=== PATIENT | female | born 1975 | race Caucasian/White ===

== ENCOUNTER 2017-09-14 14:59 | Emergency (ER) | payer OTHER ==
[2017-09-14 15:38] VITALS: BP 96/59
--- NOTE | 2017-09-14 16:39 | UC ---
Skin Complaint HPI - HPI Summary HPI Summary: 42 yo female with red raised areas on right ring finger x 3-4 days This has happened 3 times in the past and has always responded to doxy long hx Raynaulds - History of Current Complaint Chief Complaint: UCSkin Time Seen by Provider: 09/14/17 15:46 Stated Complaint: HAND INFECTION Hx Obtained From: Patient Hx Last Menstrual Period: 08/16/17 Onset/Duration: Sudden Onset, Lasting Days Timing: Constant Onset Severity: Mild Current Severity: Mild Pain Intensity: 1 Pain Scale Used: 0-10 Numeric Location: Discrete Character: Swelling, Redness, Raised, Painful - very mild Aggravating Factor(s): Nothing Alleviating Factor(s): Nothing - Allergy/Home Medications Allergies/Adverse Reactions: Allergies Allergy/AdvReac Type Severity Reaction Status Date / Time No Known Allergies Allergy Verified 09/14/17 15:39 Review of Systems Constitutional: Negative Skin: Negative Eyes: Negative ENT: Negative Respiratory: Negative Cardiovascular: Negative Gastrointestinal: Negative Genitourinary: Negative Motor: Negative Neurovascular: Negative Musculoskeletal: Negative Neurological: Negative Psychological: Negative Is Patient Immunocompromised?: No All Other Systems Reviewed And Are Negative: Yes PMH/Surg Hx/FS Hx/Imm Hx Previously Healthy: Yes - Surgical History Surgical History: None Surgery Procedure, Year, and Place: Amo teeth - Family History Known Family History: Positive: Other - autoimmune "stuff" - Social History Alcohol Use: None Substance Use Type: None Smoking Status (MU): Never Smoked Tobacco Physical Exam Triage Information Reviewed: Yes Appearance: Well-Appearing, No Pain Distress, Well-Nourished Vital Signs: Initial Vital Signs Temp 98.8 F 09/14/17 15:31 Pulse 85 09/14/17 15:31 Resp 12 09/14/17 15:31 BP 96/59 09/14/17 15:31 Pulse Ox 100 09/14/17 15:31 Vital Signs Reviewed: Yes Eyes: Positive: Conjunctiva Clear ENT: Positive: Hearing grossly normal. Negative: Nasal congestion, Nasal drainage, Trismus, Muffled voice, Hoarse voice Neck: Positive: Supple, Nontender Respiratory: Positive: Lungs clear, Normal breath sounds, No respiratory distress Cardiovascular: Positive: RRR, No Murmur Musculoskeletal: Positive: ROM Intact, Other: - see image Psychological Exam: Normal Skin Exam: Other - see image Course/Dx - Course Course Of Treatment: I suggested Rheum fernandal to r/o autoimmune cause of her symptoms - Diagnoses Provider Diagnoses: right index finger lesions of uncertain cause Discharge - Discharge Plan Condition: Stable Disposition: HOME Prescriptions: DOXYcycline CAP(*) [DOXYcycline 100MG CAP(*)] 100 mg PO BID #20 cap Mupirocin 2% OINT* [Bactroban 2 % Oint*] 1 applic TOPICAL TID #1 tube Patient Education Materials: Raynaud Disease (ED) Referrals: Christiano Garcia MD [Medical Doctor] - 2 Weeks Additional Instructions: I am unsure of the cause of your recurrent right ring finger redness and swelling Since it has responded to doxy in the past we will try that again May sure you are not before starting it use bactroban I suggest you see a director religious education about you hand symptoms Images Hands: 1 - mild fusiform swelling/erythema 2 - red/raised/not vesicular 3 - red raised 4 - red/raised/not vesicular
== END 2017-09-14 16:39 | disposition home or self-care (01) ==
LOC: UCEAST 14:59
DX: L98.9 Disorder of the skin and subcutaneous tissue, unspecified (principal); I73.00 Raynaud's syndrome without gangrene
CPT/HCPCS: 99212; G0463

== ENCOUNTER 2018-05-31 03:35 | Inpatient (IN) | payer OTHER ==
[2018-05-31] MEDS ORDERED: Misoprostol TAB* 100 MCG PO ONE ×2 (08:48→15:00)
--- NOTE | 2018-05-31 09:02 | HP ---
General Information - General Information Maternal Age: 43 Grav: 1 Para: 0 SAB: 0 IEA: 0 Estimated Due Date: 05/24/18 Determined By: LMP Gestational Age in Weeks/Days: 41 0/7 weeks Maternal Blood Type and Rh: O Positive - Results this Serology/RPR Result: Non-Reactive Rubella Result: Immune HBsAg Result: Negative HIV Result: Negative GBS Culture Result: Negative Past Medical History Delivery History: See Records Pertinent Past Medical History: See Records Pertinent Past Surgical History: See Records Pertinent Family History: See Records - Antepartal Records Antepartal Records: Reviewed, Complicated by: - AMA hypothyroidism Review of Systems Constitutional: Comfortable CV Complaint: No Respiratory: Shortness of Breath: No Gastrointestinal: No Nausea/Vomiting Genitourinary: Leaking Fluid, No Dysuria Musculoskeletal: No Complaint Neurological: No Headache, No Visual Changes Movement: Normal Exam Allergies/Adverse Reactions: Allergies No Known Allergies Allergy (Verified 09/14/17 15:39) Lab Values - Entire Visit: Laboratory Tests 05/31/18 05:47 Vag Amniotic Fld Detect Positive - Measurements Height: 5 ft 4 in Weight: 149 lb Weight in lbs: 149.372161 Body Mass Index (BMI): 25.5 Pre- Weight: 125 lb Weight Gained This : 24 lbs and 0 ozs - Abdominal Exam Abdomen Exam: Non-Tender - Ultrasound/Biophysical Profile Ultrasound Status: Not Done Targeted Exam Findings See L&D Outpatient Visit Provider Note for Findings: Yes Cervical Exam: 1cm Effacement: 70% Presenting Part: Vertex Membrane Status: SROM Amniotic Fluid Evaluation: Positive ROM Plus EFM Findings - External Monitor Findings Baseline Heart Rate: 140 External Monitor Findings: Accelerations Present, No Pattern of Variable or Late Decelerations, Variability Moderate, Baseline Stable Contractions: None Assessment/Plan - Assessment Spontaneous rupture of membranes/ cervical ripening to begin after discussion of options. Pt decides upon oral cytotec. - Obstetrical Risk Factors Obstetrical Risk Factors: Post-Dates - Plan Plan: Cervical Ripening, Admit - Anticipate Vaginal Delivery
[2018-05-31 09:55] LABS: ABS Basophils 0 10^3/ul (0-0.2); ABS Eosinophils 0.1 10^3/ul (0-0.6); ABS Lymphocytes 1.1 10^3/ul (1.0-4.8); ABS Monocytes 0.6 10^3/ul (0-0.8); ABS Neutrophils 5.8 10^3/ul (1.5-7.7); ABS Nucleated RBC 0 10^3/ul; Hematocrit 36 % (35-47); Hemoglobin 11.8 g/dl (12.0-16.0); Lymphocyte % 14.4 % (25-47); Mean Corpuscular HGB Conc 33 g/dl (31-36); Mean Corpuscular Hemoglobin 30 pg (27-31); Mean Corpuscular Volume 89 fL (80-97); Mean Platelet Volume 10.9 um3 (7.4-10.4); Nucleated Red Blood Cells % 0.1; Platelet Count 95 10^3/ul (150-450); Red Blood Count 3.98 10^6/ul (4.00-5.40); Red Cell Distribution Width 13 % (10.5-15); White Blood Count 7.6 10^3/ul (3.5-10.8)
[2018-05-31] MEDS: Acetaminophen TAB* 325 MG PO PRN ×2 (11:01→19:20)
[2018-05-31 15:56] LABS: ABS Basophils 0 10^3/ul (0-0.2); ABS Eosinophils 0.1 10^3/ul (0-0.6); ABS Monocytes 0.4 10^3/ul (0-0.8); ABS Nucleated RBC 0 10^3/ul; Eosinophil % 0.7 % (0-6); Hematocrit 38 % (35-47); Hemoglobin 12.5 g/dl (12.0-16.0); Lymphocyte % 11.3 % (25-47); Mean Corpuscular HGB Conc 33 g/dl (31-36); Mean Corpuscular Hemoglobin 30 pg (27-31); Mean Corpuscular Volume 89 fL (80-97); Nucleated Red Blood Cells % 0; Platelet Count 103 10^3/ul (150-450); Red Blood Count 4.23 10^6/ul (4.00-5.40); Red Cell Distribution Width 13 % (10.5-15); White Blood Count 8.5 10^3/ul (3.5-10.8)
[2018-05-31] MEDS ORDERED: Oxytocin in LR* 20 UNITS/1,000 ML BAG IVPB ONE (18:27)
[2018-05-31] MEDS ORDERED: Oxytocin in LR* 20 UNITS/1,000 ML BAG IVPB SCH (19:00)
[2018-05-31] MEDS ORDERED: OBEPIDURAL* 250 ML EPIDURAL ONE (21:39)
[2018-05-31] MEDS ORDERED: Famotidine TAB* 20 MG PO PRN (22:35)
[2018-05-31] MEDS ORDERED: Famotidine IV* 10 MG/ML 2 ML (20 mg) IV PRN (22:35)
[2018-05-31] MEDS ORDERED: Sodium Citrate/Citric Acid* 15 ML UDC PO PRN (22:35)
[2018-05-31] MEDS ORDERED: Phenylephrine IV* 40 MCG/ML 10 ML SYRINGE IV PUSH PRN ×2 (22:35)
[2018-05-31] MEDS ORDERED: OBEPIDURAL* 250 ML EPIDURAL SCH (23:00)
[2018-06-01] MEDS ORDERED: Glycerin ADULT SUPP PR PRN (02:13)
[2018-06-01] MEDS ORDERED: Dibucaine 1% 28.35 GM TUBE PR PRN (02:13)
[2018-06-01] MEDS ORDERED: Acetaminophen TAB* 325 MG PO PRN (02:13)
[2018-06-01] MEDS ORDERED: Witch Hazel PAD* JAR TOPICAL PRN (02:13)
--- NOTE | 2018-06-01 02:19 | PROCNOTE ---
[facility] OB: Delivery Note - Nursery Level of Nursery: Regular/Bedside - Perineum Perineal Injury: Abrasion Only - Not Repaired, Right Mediolateral Perineal Repair: None - Events Delivery Events of Note: Pitocin During Labor - Additional Delivery Notes Additional Delivery Notes: / female/ wgt pending/ Apgars 9 @1 min 9@ 5 min. nuchal left arm.no meconium no nuchal cord placenta 3VC/spontaneous/intact
[2018-06-01] MEDS ORDERED: Oxytocin in LR* 20 UNITS/1,000 ML BAG IVPB SCH (03:00)
[2018-06-01] MEDS ORDERED: Simethicone TAB* 80 MG TAB.CHEW PO SCH (08:30)
[2018-06-01] MEDS: Ibuprofen TAB* 600 MG PO PRN ×2 (09:21→19:37)
[2018-06-01] MEDS: Docusate CAP* 100 MG PO SCH ×2 (09:23→15:45)
[2018-06-01] MEDS: Levothyroxine TAB* 50 MCG TAB PO SCH (09:39)
[2018-06-02] MEDS: Docusate CAP* 100 MG PO SCH ×4 (00:40→21:06)
[2018-06-02] MEDS: Ibuprofen TAB* 600 MG PO PRN ×3 (04:20→22:16)
[2018-06-02 07:15] LABS: Hematocrit 28 % (35-47); Hemoglobin 9.4 g/dl (12.0-16.0); Mean Corpuscular HGB Conc 34 g/dl (31-36); Mean Corpuscular Hemoglobin 30 pg (27-31); Mean Corpuscular Volume 89 fL (80-97); Red Blood Count 3.15 10^6/ul (4.00-5.40); Red Cell Distribution Width 13 % (10.5-15); White Blood Count 8.8 10^3/ul (3.5-10.8)
[2018-06-02 08:25] LABS: ABS Basophils 0 10^3/ul (0-0.2); ABS Eosinophils 0.1 10^3/ul (0-0.6); ABS Lymphocytes 1.4 10^3/ul (1.0-4.8); ABS Monocytes 0.5 10^3/ul (0-0.8); ABS Neutrophils 6.7 10^3/ul (1.5-7.7); ABS Nucleated RBC 0 10^3/ul; Eosinophil % 1.5 % (0-6); Lymphocyte % 15.7 % (25-47); Mean Platelet Volume 11.2 um3 (7.4-10.4); Nucleated Red Blood Cells % 0.1; Platelet Count 75 10^3/ul (150-450)
[2018-06-02] MEDS: Ferrous Gluconate TAB* 324 MG TAB PO SCH ×2 (09:15→22:16)
[2018-06-02] MEDS: Levothyroxine TAB* 50 MCG TAB PO SCH (19:20)
[2018-06-03] MEDS: Levothyroxine TAB* 50 MCG TAB PO SCH (07:25)
[2018-06-03] MEDS: Ibuprofen TAB* 600 MG PO PRN (07:41)
[2018-06-03] MEDS: Ferrous Gluconate TAB* 324 MG TAB PO SCH (07:42)
[2018-06-03 08:20] LABS: Hematocrit 31 % (35-47); Hemoglobin 10.3 g/dl (12.0-16.0); Mean Corpuscular HGB Conc 33 g/dl (31-36); Mean Corpuscular Hemoglobin 30 pg (27-31); Mean Corpuscular Volume 90 fL (80-97); Red Blood Count 3.48 10^6/ul (4.00-5.40); Red Cell Distribution Width 13 % (10.5-15); White Blood Count 7.7 10^3/ul (3.5-10.8)
[2018-06-03 08:23] LABS: ABS Basophils 0 10^3/ul (0-0.2); ABS Eosinophils 0.1 10^3/ul (0-0.6); ABS Lymphocytes 1.1 10^3/ul (1.0-4.8); ABS Monocytes 0.5 10^3/ul (0-0.8); ABS Neutrophils 5.9 10^3/ul (1.5-7.7); ABS Nucleated RBC 0 10^3/ul; Eosinophil % 1.9 % (0-6); Nucleated Red Blood Cells % 0.1; Platelet Count 99 10^3/ul (150-450)
[2018-06-03 08:45] VITALS: BP 106/63
== END 2018-06-03 15:19 | disposition home or self-care (01) | DRG 775 ==
LOC: MCHOBOUT 03:35 → MCHOB 08:03
PROVIDERS: ADMIT Obstetrics & Gynecology; ATTEND Obstetrics & Gynecology
PROC: 10E0XZZ Delivery of Products of Conception, External Approach (ICD-10-PCS; principal; 2018-06-01)
PROC: 3E033VJ Introduction of Other Hormone into Peripheral Vein, Percutaneous Approach (ICD-10-PCS; 2018-06-01)
DX: O48.0 Post-term pregnancy (principal); O99.284 Endocrine, nutritional and metabolic diseases complicating childbirth; E03.9 Hypothyroidism, unspecified; O99.344 Other mental disorders complicating childbirth; F41.8 Other specified anxiety disorders; O90.81 Anemia of the puerperium; D64.9 Anemia, unspecified; Z3A.41 41 weeks gestation of pregnancy; Z37.0 Single live birth
CPT/HCPCS: 36415; 84112; 85025; 85060; 86850; 86900; 86901; A9270-GY; S0191

== ENCOUNTER 2019-02-21 20:25 | Emergency (ER) | payer OTHER ==
[2019-02-21 20:32] VITALS: BP 105/64
--- NOTE | 2019-02-21 20:47 | UC ---
UC General HPI - HPI Summary HPI Summary: Patient is a 43 year old woman, who present today to the urgent care with diarrhea for past 1 week f. she reports that she had large bowel movements on Friday and Friday and after that she is being having small 1-2 bowel movements daily. Last bowel movement today was an afternoon and now she feels that she is not able to completely evacuate. She does have associated nausea but is able to tolerate by mouth well and has not had any episode of vomiting. She denies any blood or mucus in stool . she was seen a week before at her primary care doctor's office and was diagnosed with anal fissure and at that time she was having some bleeding which has completely resolved now. there is mild lower abdominal cramping. she recalls that she ate raw eggs which was the only different thing from her and her is completely asymptomatic she denies any antibiotic use in the past 3 months, no vaginal or urinary symptoms reported. Her mom does have a history of ulcerative colitis but she has not been tested for it. - History of Current Complaint Chief Complaint: UCGI Stated Complaint: NAUSEOUS Time Seen by Provider: 02/21/19 20:33 Hx Obtained From: Patient Hx Last Menstrual Period: 08/06/17 Pain Intensity: 0 - Allergy/Home Medications Allergies/Adverse Reactions: Allergies Allergy/AdvReac Type Severity Reaction Status Date / Time No Known Allergies Allergy Verified 02/21/19 20:32 PMH/Surg Hx/FS Hx/Imm Hx - Additional Past Medical History Additional PMH: Past Medical History : hypothyroidism, on levothyroxine Past Surgical History: wisdom tooth Family History : mother with history of ulcerative colitis Social History : no alcohol use, non smoker, no drug use. she is a professor at [employer] Previously Healthy: Yes - Surgical History Surgical History: None Surgery Procedure, Year, and Place: Bl[place] teeth - Family History Known Family History: Positive: Other - autoimmune "stuff" - Social History Alcohol Use: None Substance Use Type: None Smoking Status (MU): Never Smoked Tobacco Have You Smoked in the Last Year: No - Immunization History Most Recent Influenza Vaccination: n/a Most Recent Pneumonia Vaccination: n/a Review of Systems All Other Systems Reviewed And Are Negative: Yes Constitutional: Positive: Negative Skin: Positive: Negative Eyes: Positive: Negative ENT: Positive: Negative Respiratory: Positive: Negative Cardiovascular: Positive: Negative Gastrointestinal: Positive: Abdominal Pain, Diarrhea, Nausea Genitourinary: Positive: Negative Motor: Positive: Negative Neurovascular: Positive: Negative Musculoskeletal: Positive: Negative Neurological: Positive: Negative Psychological: Positive: Negative Is Patient Immunocompromised?: No Physical Exam - Summary Physical Exam Summary: Physical Exam: Const: Appears well. No signs of apparent distress present. Alert and oriented x 3. Musculo: Walks with a normal gait. Head/Face: Atraumatic, normocephalic on inspection. Eyes: EOMI and PERRLA in both eyes. Conjunctivae clear. No discharge noted ENT: Hearing jennifer Respiratory: Respirations are unlabored. Lungs clear to auscultation bilaterally, no wheezing , rhonchi or rales noted . CVS: Regular rate and Rhythm, S1S2 normal , no murmurs identified. Extremities: Peripheral circulation is grossly normal. Pulses 2+ Abdomen : Soft non tender , nondistended , Bowel sounds present . No guarding , rebound tenderness or rigidity noted. Skin: No lesions or rash located on the upper extremities or on the lower extremities. Neuro: Cranial nerves II to XII intact, motor and sensory intact. DTR Intact bilaterally. Mood is normal. Affect is normal. Triage Information Reviewed: Yes Vital Signs: Initial Vital Signs Temp 98.8 F 02/21/19 20:27 Pulse 74 02/21/19 20:27 Resp 16 02/21/19 20:27 BP 105/64 02/21/19 20:27 Pulse Ox 100 02/21/19 20:27 Vital Signs Reviewed: Yes Course/Dx - Course Course Of Treatment: During the visit today, we obtained UA and urine test which were negative. We discussed the findings which appeared to be secondary to viral enterocolitis and further plan. Given family history of ulcerative colitis we discussed the option of referral to GI for further evaluation and she wants to follow up with her primary care doctor to discuss that further. she will be given the stool kit to take home to do stool studies and she will follow with her primary care doctor. Patient expressed understanding . - Diagnoses Provider Diagnosis: Diarrhea, Enterocolitis Discharge - Sign-Out/Discharge Documenting (check all that apply): Patient Departure All imaging exams completed and their final reports reviewed: No Studies - Discharge Plan Condition: Stable Disposition: HOME Patient Education Materials: Acute Diarrhea (ED), Enteritis (ED) Referrals: Bernadette Burnett NP [Primary Care Provider] - 1 Week Additional Instructions: Please bring the stool sample for testing. maintain hydration. Follow up with your primary care doctor in 1 week and discuss about the referral to GI. Return to Urgent care / ER if symptoms get worse. - Billing Disposition and Condition Condition: STABLE Disposition: Home
--- NOTE | 2019-02-22 18:10 | UC ---
- Progress Note Progress Note: 02/22/2019 Negative Rotavirus Negative occult blood FEcal Lactoferrin : negative E.Coli still pending Stool culture still pending Shiga toxin 1&2 still pending Lab called back and inform C.Diff. was not performed since stool was formed. Thus, probably Pt's diarrhea already resolved by today No change Ry Cohn PA-C Course/Dx - Diagnoses Provider Diagnoses: Diarrhea, Enterocolitis Discharge - Sign-Out/Discharge Documenting (check all that apply): Patient Departure All imaging exams completed and their final reports reviewed: No Studies - Discharge Plan Condition: Stable Disposition: HOME Patient Education Materials: Acute Diarrhea (ED), Enteritis (ED) Referrals: Bernadette Burnett NP [Primary Care Provider] - 1 Week Additional Instructions: Please bring the stool sample for testing. maintain hydration. Follow up with your primary care doctor in 1 week and discuss about the referral to GI. Return to Urgent care / ER if symptoms get worse. - Billing Disposition and Condition Condition: STABLE Disposition: Home
== END 2019-02-21 21:39 | disposition home or self-care (01) ==
LOC: UCEAST 20:25
DX: K52.9 Noninfective gastroenteritis and colitis, unspecified (principal); E03.9 Hypothyroidism, unspecified; Z32.02 Encounter for pregnancy test, result negative
CPT/HCPCS: 81003; 84702; 99211; G0463

== ENCOUNTER 2021-02-20 09:28 | Inpatient (IN) ==
[2021-02-20] MEDS ORDERED: Buffered Lidocaine 1% SYRIN 1 ml INTRADERM ONE (10:25)
[2021-02-20] MEDS ORDERED: Lactated Ringers 1000 ml BAG 1,000 ML IV ONE ×2 (10:25→20:27)
[2021-02-20] MEDS ORDERED: Lactated Ringers 1000 ml BAG 1,000 ML IV SCH (11:00)
[2021-02-20] MEDS ORDERED: Oxytocin in LR 20 UNITS/1,000 ML BAG IVPB SCH ×2 (11:00→21:00)
[2021-02-20 12:34] LABS: ABS Basophils 0.1 10^3/ul (0-0.2); ABS Lymphocytes 1.4 10^3/ul (1.0-4.8); ABS Monocytes 0.5 10^3/ul (0-0.8); ABS Neutrophils 7.6 10^3/ul (1.5-7.7); Eosinophil % 0.4 %; Hematocrit 36 % (35-47); Hemoglobin 11.8 g/dL (12.0-16.0); Lymphocyte % 14.7 %; Mean Corpuscular HGB Conc 33 g/dL (31-36); Mean Corpuscular Hemoglobin 29 pg (27-31); Mean Corpuscular Volume 89 fL (80-97); Mean Platelet Volume 10.5 fL (7.4-10.4); Nucleated Red Blood Cells % 0.1; Platelet Count 152 10^3/uL (150-450); Red Blood Count 4.03 10^6 /uL (3.70-4.87); Red Cell Distribution Width 14 % (10-15); White Blood Count 9.6 10^3/uL (3.5-10.8)
[2021-02-20 12:59] LABS: Urine Benzodiazepine Screen None Detected (None Detect); Urine Cannabinoids Screen None Detected (None Detect); Urine Opiates Screen None Detected (None Detect)
[2021-02-20] MEDS ORDERED: OBEPIDURAL 250 ML EPIDURAL ONE (19:40)
[2021-02-20] MEDS ORDERED: Phenylephrine 40 mcg/mL 10mL (400mcg) SYRINGE IV PUSH PRN ×2 (20:27)
[2021-02-20] MEDS ORDERED: Sodium Citrate/Citric Acid LIQ 15 ML UDC PO PRN (20:27)
[2021-02-20] MEDS ORDERED: EPHEDrine (Pressors) 50 MG/ML VIAL IV PUSH PRN ×2 (20:27)
[2021-02-20] MEDS ORDERED: Calcium Carb (TUMS) 500 mg CHEW TAB PO ONE (20:47)
[2021-02-20] MEDS: Lactated Ringers 1000 ml BAG 1,000 ML IV SCH (20:56)
[2021-02-20] MEDS ORDERED: OBEPIDURAL 250 ML EPIDURAL SCH (21:00)
[2021-02-20 22:24] LABS: Urine Appearance Cloudy; Urine Bilirubin Negative (Negative); Urine Blood 1+ (Negative); Urine Color Straw; Urine Glucose Negative (Negative); Urine Ketones Negative (Negative); Urine Nitrite Negative (Negative); Urine Protein Negative (Negative); Urine Specific Gravity 1.009 (1.002-1.030); Urine Urobilinogen Negative (Negative)
[2021-02-20 22:32] LABS: Urine Bacteria Absent (Absent); Urine Red Blood Cell 1+(3-5/hpf) (Absent); Urine Squamous Epithelial Cell Present (Absent); Urine White Blood Cell Absent (Absent)
[2021-02-21] MEDS: Lactated Ringers 1000 ml BAG 1,000 ML IV SCH (01:53)
[2021-02-21] MEDS ORDERED: NS 0.9% EPIDURAL SCH (04:00)
[2021-02-21] MEDS ORDERED: D5LR 1000 ml BAG 1,000 ML IV SCH (04:00)
[2021-02-21] MEDS ORDERED: ROPIVACAINE EPIDURAL SCH (04:00)
[2021-02-21] MEDS ORDERED: Oxytocin in LR 20 UNITS/1,000 ML BAG IVPB ONE (06:56)
[2021-02-21] MEDS ORDERED: Witch Hazel PAD JAR ONE (07:11)
[2021-02-21] MEDS ORDERED: Dibucaine 1% OINT 28.35 GM TUBE ONE (07:11)
[2021-02-21] MEDS ORDERED: Dibucaine 1% OINT 28.35 GM TUBE PR PRN (07:17)
[2021-02-21] MEDS ORDERED: Witch Hazel PAD JAR TOPICAL PRN (07:17)
[2021-02-21] MEDS ORDERED: Glycerin ADULT 2.4 gm SUPP PR PRN (07:17)
[2021-02-21] MEDS ORDERED: ceFAZolin 2 GM PREMIX 2 GM/50 ML BAG IVPB ONE (07:19)
[2021-02-21] MEDS ORDERED: Lidocaine 1% MPF 5 ML VIAL ONE (07:48)
[2021-02-21] MEDS ORDERED: Oxytocin in LR 20 UNITS/1,000 ML BAG IVPB SCH (08:00)
[2021-02-21] MEDS ORDERED: Lactated Ringers 1000 ml BAG 1,000 ML IV SCH (08:00)
[2021-02-22 05:52] VITALS: BP 89/46
[2021-02-22 06:28] LABS: ABS Eosinophils 0.1 10^3/ul (0-0.6); ABS Lymphocytes 1.8 10^3/ul (1.0-4.8); ABS Monocytes 0.4 10^3/ul (0-0.8); ABS Neutrophils 6.4 10^3/ul (1.5-7.7); Eosinophil % 1.4 %; Hematocrit 25 % (35-47); Hemoglobin 8.3 g/dL (12.0-16.0); Lymphocyte % 20.8 %; Mean Corpuscular HGB Conc 34 g/dL (31-36); Mean Corpuscular Hemoglobin 30 pg (27-31); Mean Corpuscular Volume 88 fL (80-97); Mean Platelet Volume 10.2 fL (7.4-10.4); Platelet Count 114 10^3/uL (150-450); Red Blood Count 2.78 10^6 /uL (3.70-4.87); Red Cell Distribution Width 14 % (10-15); White Blood Count 8.7 10^3/uL (3.5-10.8)
== END 2021-02-22 07:05 | disposition left against medical advice (07) | DRG 807 ==
LOC: MCHOBOUT 09:28 → MCHOB 10:29
PROVIDERS: ADMIT Obstetrics & Gynecology; ATTEND Obstetrics & Gynecology